=== PATIENT | male | born 1970 | race African-American/Black ===

== ENCOUNTER 2025-01-23 17:11 | Inpatient (IN) | payer MEDICAID, SELFPAY ==
[2025-01-23 17:41] VITALS: BP 136/72; PULSE 81; RESP 16; TEMP 36.7; O2SAT 99
[2025-01-23 17:46] VITALS: BMI 30.2
--- NOTE | 2025-01-23 18:32 | PC.ADMIT ---
This is the 1st admission for this 54 y.o. male to this [facility] at [facility] [place]. Arrived on unit at 1732 via ambulance from [facility] ED. Brought to [facility] ED on 01/22/25 on [address] by police after approaching people and accusing them of stalking him. Also reported to police that he kidnapped 30 6 y.o. children-per report. Pt reported to this loan underwriter during admission here that he approached police to run a check on him, knowing it would come out clean. He then told police people were following him from one place to another. Per nurse to nurse report with [facility], pt received a medication restraint upon admission to their ED 01/22/25 at 1000 due to verbal agitation with little effect. Pt denies substance use or hx tobacco use. Tox screen negative, etoh <=10. Admitting Dx: Psychosis, unspecified psychosis type. Paranoid and delusional per crisis eval at [facility]. Agitation noted upon admission to this unit. Questioned why staff was taking belongings. Declined supper offered, stating he just wanted belongings. Watched over nurses station as staff inventoried belongings. States he has lived in a assisted x1 year and his belongings are all he has. Reports no medical or psychiatric providers, no one to call as he is all alone. Reports no insurance, no hx med use. Irritated that he would not be able to meet with doctor all and that he may have to stay here for more than 1 day. States this whole situation is stupid. Able to calm during admission assessment and while watching belongings inventoried. Rates depression and anxiety #2-3 on scale 1-10(10 worse). Denies SI/HI, denies AH/VH. States he can return to assisted if ever allowed to leave. Admission orders received from prescriber, Irina Acuna.
--- OUTSIDE RECORDS SUMMARY | 2025-01-23 18:45 | XMS_ITS | Encounter Summary ---
Author Organization [facility] ystem Address [address] [place] [address] Phone Care Team Providers Care Perfect Binder Operator Name Role Phone Required, No Pcp/Pcp Not Primary Care Provider U navailable Reason for Visit * Reason Comments Psychiatric Evaluation Encounter Details Date Type Department Care Team (Late st Contact Info) Description 01/22/2025 4:32 PM EDT - 01/23/2025 3:15 PM EDT Emergency [facility] - Emergency Department [address] [place] [id number] Scooby Arauz MD [address] [place] [address] [address] Eris Rodriguez MD [address] [place] [id number] Malvin Rojas MD [address] [place] [id number] Tripp Sandhu MD [address] [place] [id number] Yomi Greene MD [address] [place] [phone] Paranoia (CMS/HCC) (Primary Dx); Psychosis, unspecified psychosis type (CMS/HCC) Discharge Disposition: Acute Hospital / Other Facility Social History Tobacco Use Types Packs/Day Years Used Date Smoking Tobacco: Never Assessed Sex and Gender Information Value Date Recorded Sex Assigned at Not on file Legal Sex Male 4:30 PM EDT Gender Identity Not on file Sexual Orientation Not on file documented as of this encounter Last Filed Vital Signs Vital Sign Reading Time Taken Comments Blood Pressure 119/74 01/23/2025 1:57 PM EDT Pulse 64 01/23/2025 1:57 PM EDT Temperature 36.7 ??C (98 ??F) 01/23/2025 1:57 PM EDT Respiratory Rate 18 01/23/2025 1:57 PM EDT Oxygen Saturation 100% 01/23/2025 1:57 PM EDT Inhaled Oxygen Concentration - - Weight 124.7 kg (275 lb) 01/23/2025 5:02 AM EDT Height 188 cm (6' 2 ) 01/23/2025 5:02 AM EDT Body Mass Index 35.31 01/23/2025 5:02 AM EDT documented in this encounter Discharge Summaries * Estrella Tejada CNP - 01/23/2025 3:15 PM EDT Psychiatric Observation Discharge Summary Patient Name: Alejandro Rosa Date of : 1970 Date of Service: 01/23/25 Length of Service: 01/22/2025 - 01/23/25 Final Diagnoses: Patient Active Problem List Diagnosis Psychosis, unspecified psychosis type (CMS/HCC) CURRENT DIAGNOSIS: Psychosis Patient Active Problem List Diagnosis Psychosis, unspecified psychosis type (CMS/HCC) REASON FOR ADMISSION TO POBS: Psychosis HOSPITAL COURSE Admitted to Psychiatric Observation Service for management of psychosis Added olanzapine Limited improvement in symptoms Psychosis continued throughout hospitalization continue to recommend inpatient psychiatric placement, Benjie has found placement at [facility] where patient will be transferred to for ongoing care. DISCHARGE MEDICATIONS Current Facility-Administered Medications: acetaminophen (TYLENOL) tablet 650 mg, 650 mg, Oral, q6h PRN, Elizabet Peterson CNP LORazepam (ATIVAN) tablet 1 mg, 1 mg, Oral, TID PRN, Elizabet Peterson, ADELA OLANZapine (ZYPREXA) tablet 5 mg, 5 mg, Oral, TID PRN, Elizabet Peterson FACILITIES MAINTENANCE WORKER No current outpatient medications on file. MENTAL STATUS UPON DISCHARGE Physical Exam: Musculoskeletal: moves all extremities; no abnormal movements Gait: gait not assessed EPS: none MSE: Appearance: disheveled, unkempt, and malodorous Behavior: uncooperative, guarded, and hostile Psychomotor Activity: normal Speech: regular rate, regular rhythm, and regular volume Mood: irritable Affect: labile Thought Process: linear Thought Content: paranoia Suicidal Ideation: unable to assess Homicidal Ideation: unable to assess Perceptions/Experiences: unable to assess Insight: poor Judgement: poor Cognitive Exam: Orientation: oriented X3 and alert Memory: unable to assess Attention/Concentration: poor Fund of Knowledge: limited Language: fluent Capacity: Cannot leave AMA Health Care Proxy: not invoked ROS Constitutional: No fever, no weight loss Musculoskeletal: NO EPS Positive: paranoia, impaired insight/judgment, mood lability, recent agitation Negative for: headache, sore throat, chest pain, dizziness, blurred vision, fatigue, joint pain, constipation, skin itchiness, dysuria, cough, SOB, vomiting, diarrhea, nausea, abdominal pain. CONDITION AT DISCHARGE Continues with paranoia, impaired insight/judgment, mood lability, recent agitation Danger to self and others DISPOSITION Requires Psychiatric Inpatient level of Care POST-DISCHARGE PLAN: Admit to [facility] Accepting Physician - Dr. Higinio Tejada CNP documented in this encounter H&P Notes * Elizabet Peterson CNP - 01/23/2025 8:21 AM EDT PSYCHIATRIC OBSERVATION ADMISSION H&P REASON FOR CONSULT A psychiatric consult was placed by Dr. Arauz for evaluation of a patient with paranoia. The patient's record was reviewed, patient was interviewed, and clinical staff were consulted to completethis comprehensive psychiatric consultation. Patient Name: Alejandro Rosa Date of : 1970 Date of Service: 01/23/2025 Time of Service: 8:21 AM Length of Service: 60 minutes Source of information: Patient, Staff collateral CHIEF COMPLAINT: When can I leave? I need to go. HISTORY OF PRESENT ILLNESS The patient is a 54 y.o. male with an unknown psychiatric history who presented on 01/22/2025 to theEmergency Department with symptoms of paranoia. Per report, patient was brought to ER on a Section 12 by Bret NOLAN for fixed delusions related to being 'stalked' , reportedly was approaching people asking why they were stalking him. Patient alsoreportedly told police he kidnapped 30 6 year old children. Per ED triage note, patient reported that he is sure someone is following him and maybe he does need a psych eval since he doesn't know how to make a million dollars. Upon assessment this morning, patient is seen laying in bed. He immediately asks, When can I leave? I need to go. Everytime I talk to someone they tell me I can go. [facility] night said I could leave today. I advised that the Benjie clinician completed the crisis assessment last night and recommends inpatient psychiatric treatment for stabilization due to reports of paranoia. Patient educated on Section 12 process but states 72 hours is too long and he has things to do. Patient refusing to engage in an assessment with this provider despite multiple attempts. Of note, patient requiredIM medication upon arrival due to acute agitation. Exam is limited as patient refused to engage in assessment. Extensive chart review completed although there appear to be no outside charts/information. There are no listed contacts available for collateral. Addendum: Patient requested to speak with me again this morning. He continues to state he wants to leave. I provided education on Section 12 and boarding in ER for psychiatric transfer. Patient tellsme he approached two people yesterday who he knows were following me. I was at [employer] then [employer]. I told them I was going to [employer]. Then I saw them walk by. There's gotta be cameras over the re to see I was talking to him. Patient continues to state multiple people are following him. Whenasked about making a statement about kidnapping children, he denies ever saying that. He states, People may think that, but they're following me. Patient reports being brought to ER for vital signs. Patient denies past psychiatric history, states he is currently homeless but has a great life. Presenting Problem: paranoia Frequency: unknown Modifiable factors: medication management, outpatient supports Severity: moderate PAST PSYCHIATRIC HISTORY Outpatient psychiatric providers: Provider: none Therapist: none Past medication trials: unknown History of inpatient psychiatric hospitalization: unknown History of suicide attempts: unknown History of Self-Injurious behavior: unknown History of violence towards others: unknown History of eating disorder: unknown History of Trauma: unknown FAMILY PSYCHIATRIC HISTORY Family history of psychiatric illness: unknown SUBSTANCE HISTORY: Only listing what is appropriate Unable to assess as patient refuses to engage in conversation MEDICAL/SURGICAL HISTORY: Name of outpatient PCP: Required, No Pcp/Pcp Not Unable to assess as patient refuses to engage in conversation SOCIAL HISTORY: Living situation: homeless Unable to assess further social history due to patient's refusal to engage with this provider Social History Socioeconomic History Marital status: Single Spouse name: Not on file Number of children: Not on file Years of education: Not on file Highest education level: Not on file Occupational History Not on file Tobacco Use Smoking status: Not on file Smokeless tobacco: Not on file Substance and Sexual Activity Alcohol use: Not on file Drug use: Not on file Sexual activity: Not on file Other Topics Concern Not on file Social History Narrative Not on file Social Drivers of Health Financial Resource Strain: Not on file Food Insecurity: Not on file Transportation Needs: Not on file Physical Activity: Not on file Stress: Not on file Social Connections: Not on file Intimate Partner Violence: Not on file Housing Stability: Not on file ALLERGIES: No Known Allergies RELEVANT LABS: Recent Results (from the past week) Acetaminophen level Collection Time: 01/22/25 6:27 PM Result Value Ref Range Acetaminophen Level <5.1 <15.0 ug/mL CBC with auto differential Collection Time: 01/22/25 6:27 PM Result Value Ref Range WBC 12.6 (H) 4.5 - 10.8 10*3 ??l RBC 4.16 (L) 4.70 - 6.10 10*6 ??l Hemoglobin 10.4 (L) 14.0 - 18.0 g/dL Hematocrit 33.2 (L) 42.0 - 52.0 % MCV 80 80 - 95 fL MCH 25.0 (L) 25.4 - 39.0 pg MCHC 31.3 31.0 - 37.0 g/dL RDW 15.5 (H) 11.5 - 14.5 % Platelets 309 150 - 450 10*3 ??l MPV 13.5 (H) 7.0 - 11.0 fL Neutrophils % 74.4 40.0 - 80.0 % Lymphocytes % 16.3 (L) 20.0 - 40.0 % Monocytes % 7.5 2.0 - 10.0 % Eosinophils % 1.0 1.0 - 6.0 % Basophils % 0.4 0.0 - 1.0 % Immature Granulocyte % 0.4 0.0 - 0.9 % Neutrophils Absolute 9.37 (H) 2.00 - 7.00 K/mm3 Absolute Immature Granulocyte 0.05 0.00 - 0.09 K/mm3 Lymphocytes Absolute 2.05 1.00 - 3.00 K/mm3 Monocytes Absolute 0.95 0.20 - 1.00 K/mm3 Eosinophils Absolute 0.12 0.00 - 0.50 K/mm3 Basophils Absolute 0.05 0.00 - 0.10 K/mm3 Microcytes Present (A) None Seen Comprehensive metabolic panel Collection Time: 01/22/25 6:27 PM Result Value Ref Range Glucose 93 70 - 100 mg/dL BUN 20 (H) 6 - 19 mg/dL Creatinine 0.9 0.4 - 1.2 mg/dL eGFR >60.00 >60.00 mL/min/1.73m*2 Sodium 138 135 - 145 mmol/L Potassium 3.5 3.4 - 5.1 mmol/L Chloride 102 98 - 109 mmol/L CO2 22 (L) 24 - 32 mmol/L Anion Gap 14 (H) 6 - 12 mmol/L Calcium 9.6 8.5 - 10.5 mg/dL Total Bilirubin 0.3 0.2 - 1.2 mg/dL Alkaline Phosphatase 108 40 - 129 U/L ALT (SGPT) 16 0 - 40 U/L AST 17 0 - 37 U/L Total Protein 9.0 (H) 6.0 - 8.5 g/dL Albumin 4.4 3.3 - 5.2 g/dL Estimated Creatinine Clearance 108.1 mL/min Ethanol Collection Time: 01/22/25 6:27 PM Result Value Ref Range Ethanol <=10 0 - 10 mg/dL Salicylate level Collection Time: 01/22/25 6:27 PM Result Value Ref Range Salicylate Level <=3.0 3.0 - 30.0 mg/dL Slide Review Collection Time: 01/22/25 6:27 PM Result Value Ref Range Ovalocytes Present None Seen Poikilocytes Present None Seen Giant Platelets Present None Seen COVID-19 ([facility]) Collection Time: 01/22/25 6:29 PM Specimen: Nasopharynx; Swab Result Value Ref Range COVID-19 ([facility]) PCR Negative Negative MOST RECENT VITAL SIGNS: Vitals: 01/23/25 0630 BP: 120/73 Pulse: 78 Resp: 18 Temp: SpO2: 97% MENTAL STATUS EXAM: Physical Exam: Musculoskeletal: moves all extremities; no abnormal movements Gait: gait not assessed EPS: none MSE: Appearance: disheveled, unkempt, and malodorous Behavior: uncooperative, guarded, and hostile Psychomotor Activity: normal Speech: regular rate, regular rhythm, and regular volume Mood: irritable Affect: labile Thought Process: linear Thought Content: paranoia Suicidal Ideation: unable to assess Homicidal Ideation: unable to assess Perceptions/Experiences: unable to assess Insight: poor Judgement: poor Cognitive Exam: Orientation: oriented X3 and alert Memory: unable to assess Attention/Concentration: poor Fund of Knowledge: limited Language: fluent Capacity: Cannot leave AMA Health Care Proxy: not invoked 1:1 SI Precautions assessment Suicidal thoughts: unable to assess -Plan: unable to assess -Intent: unable to assess Suicidal or Self-harm behaviors: none Risk factors: paranoia, impaired insight.judgment Protective factors: able to make needs known For additional documentation please refer to nursing psychosocial documentation for standardized C-SSRS re-assessment. REVIEW OF SYSTEMS Constitutional: No fever, no weight loss Musculoskeletal: NO EPS Positive: paranoia, impaired insight/judgment, mood lability, recent agitation Negative for: headache, sore throat, chest pain, dizziness, blurred vision, fatigue, joint pain, constipation, skin itchiness, dysuria, cough, SOB, vomiting, diarrhea, nausea, abdominal pain. CURRENT MEDICATIONS OUTPATIENT: No current outpatient medications ASSESSMENT: The patient presented to the Emergency Department with increased symptoms of paranoia in the context of underlying probable psychosis. The patient refuses to engage in a psychiatric assessment this morning despite multiple attempts by this provider. Patient was brought to ER on a Section 12 by police after approaching people accusing them of stalking him as well as reporting to police that he kidnapped 30 6 year old children. Due to concerns for psychosis, impaired insight/judgment, and agitation in ER, patient is currently meeting Section 12 criteria for inpatient psychiatric treatment. I reinforced this plan with patient this morning, although he appears to have limited insight into reas ons for hospitalization and asks to leave. It appears patient has no recent prescriptions/medications. As patient is unwilling to engage in full assessment, will defer medication management to inpatient psychiatric facility. Will add Zyprexa PRN for psychosis/restlessness/irritability/insomnia and Ativan PRN for anxiety while boarding in ER. Educated patient on purpose of medications, although he continued to engage in a conversation. Continue to evaluate patient's mental status and monitor sleep and appetite closely, observe any potential side effects from psychiatric medications. Will continue to provide counseling to help patient deal with stressors, and provide education and support, while continuing to work with medicine tohelp facilitate patient's clinical progress. HPI and nursing notes were reviewed. Benjie are involved in the ongoing treatment planning for thispatient. At this time the patient may not leave AMA. Plan to continue to monitor the patient while the patient remains in the hospital. Recommend at this time admission to psychiatric observation for medication adjustment and monitoring. Medical review of the labs: COVID -, Ethanol -, UDS not collected DIAGNOSTIC IMPRESSION: Unspecified psychosis F 29 Principal Problem: Psychosis, unspecified psychosis type (CMS/HCC) (POA: Yes) PLAN: Admit to Psychiatric Observation Medication plan: Add Zyprexa 5 mg TID PRN for psychosis/restlessness/irritability/insomnia Add Ativan 1 mg TID PRN for anxiety Monitor: Continue video monitoring to mitigate elopement risk and monitor ongoing patient safety while boarding in the ED. Patient may not leave AMA Discussed risks and benefits of medication plan with patient Update Dr. Rojas to inform team of disposition. Benjie involved with treatment planning--inpatient bed search Elizabet Peterson CNP 01/23/2025 8:21 AM documented in this encounter Consult Notes * Naman Bills LMHC - 01/22/2025 11:44 PM EDTAssociated Order(s): CONSULT TO ASPIRE/ ANISH ANISH Adult PIF/Assessment Boilermaker Assembly And Erection (R): KENNEDY Adams Date of Service (R): 01/22/2025 PERSONAL INFORMATION/DEMOGRAPHICS Patient Demographics Patient Name Alejandro Rosa Legal Sex Male [facility] [phone] [place] [address] (Home) No emergency contact information on file. Currently Active Insurance Patient has no currently active insurance coverage. ED Arrival Date/Time (R): 01/22/2025 4:32 PM Consult Order Date/Time (R): 01/22/2025 7:38 PM Ready Date (R): 01/22/2025 Ready Time (R):19:38 Has this person received services here before? Yes Living Situation: Lives in a long-term Homeless? (R): Yes Collateral Contact: Does the patient have a guardian? [facility]: No Guardianship Contact: Not Applicable Email Address: No e-mail address on record Ok to send a message? No Ask the person: Are you in a Dangerous Situation? No If Yes, please explain: (Follow and document per your emergency protocols) None Patient Preferred Languages Hospitality Services Manager Needed No Spoken Language Icelandic Written Language Icelandic Assessment Location of Service (R): ED Who directed client to ED? (R) Section 12 Was the patient sent with a Section 12 (R) Yes Who signed Section 12? (R) PCC/Other MD Presenting Concerns: What has caused this person to seek Services at this time? Pt is a 54 year old -Japanese male who was sectioned to the emergency department by the police for paranoia and psychosis. Pt reports to the police that he is being stalked and followed by random people wherever he goes. The police reports that pt went up to random people and asked why they're following him? Pt also reports to the police that he kidnapped 30 children around the age of 66 years old. Pt appears agitated, irritable, paranoid, somewhat agitated, and seeking to leave the emergency because he believes that he does belong here. There is no evidence that pt kidnapped any children. Pt says he voluntarily walked up to the police, handed them his [place] State ID, and asked they verify if there aren't any active warrants on him. Pt says he has been arrested for shoplifting and denies other felonies. Pt denies suicidal ideation or homicidal ideation. Precipitating Factors: Pt denies that he suffers from mental illness. Pt denies that he has ever been hospitalized psychiatrically. 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 Pt is very tangential, and paranoid. Pt is homeless. Pt does not have any family in this area. He is from the [facility]. Pt does not have any psychiatric treaters for he does not believe that he has any mental illness. 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 Medical/Physical No past medical history on file. Allergies Reported No Known Allergies Medications Prior to Admission medications Not on File Relevant History No family history on file. Addiction Is there a history of, or current substance use or other addictive behavior? No Was a toxicology screen performed? Yes Results: Negative for illicit drugs. Was Narcan administered during the last 30 days? No Explain (Please include date and time): N/A Addiction/ Substance Use History Substance Type First Use/Age of Onset Last Use Duration/Frequency Quantities Comments Alcohol Denies Cannabis Cocaine/Crack Heroin Opiates/Narcotics Benzodiazepines Stimulants Hallucinogens Prescription Other: Click or tap here to enter text. Most Recent Acute Admission(s) and Treatment History Has there been a recent acute admission or treatment history? Yes Please include dates of admission, service type, name of agency/provider, goal/outcome: Pt denies ever been in treatment for mental illness. Mental Status Exam/Risk Assessment Mental Status Exam/Risk Assessment (within normal limits unless checked, items checked are addressed in clinical formulation/narrative: Affect, Appearance, Impulsivity, Insight, Judgement, and Perception: Delusions, Hallucinations *Harm to Self and Others include: Means, accessibility (included access to firearms), lethality of means, suicidal/assault history, lethality or attempts/assaults, family history, self- injurious behavior Risk and Protective Factors: Paranoid, Psychosis Clinical Formulation/Narrative/Medical Necessity: What has caused this person to seek Services at this time? Pt is a 54 year old -Japanese male who was sectioned to the emergency department by the police for paranoia and psychosis. Pt reports to the police that he is being stalked and followed by random people wherever he goes. The police reports that pt went up to random people and asked why they're following him? Pt also reports to the police that he kidnapped 30 children around the age of 66 years old. Pt appears agitated, irritable, paranoid, somewhat agitated, and seeking to leave the emergency because he believes that he does belong here. There is no evidence that pt kidnapped any children. Pt says he voluntarily walked up to the police, handed them his [place] State ID, and asked they verify if there aren't any active warrants on him. Pt says he has been arrested for shoplifting and denies other felonies. Pt denies suicidal ideation or homicidal ideation. Precipitating Factors: Pt denies that he suffers from mental illness. Pt denies that he has ever been hospitalized psychiatrically. 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 Pt is very tangential, and paranoid. Pt is homeless. Pt does not have any family in this area. He is from the [place] area. Pt does not have any psychiatric treaters for he does not believe that he has any mental illness. 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 Medical/Physical Pt is alert and oriented in all spheres. Pt's speech is loud and pressured. Pt appears unkempt and disheveled. Pt is irritable, loud and exit seeking. Pt says I do not see any reason why I'm here! Pt does not appear to be compliant with psychotropic regimen. Pt denies having any treaters. Pt denies ever been hospitalized. Pt denies SI/HI. Pt denies auditory and visual hallucinations. Pt is verbose, loud, and has no realistic insight into his mental illness. Pt's thought content is bizarre. Ptthought process is non-linear and tangential. Pt is paranoid. Pt confronts random strangers and askwhy they are following him? 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 He is homeless. Pt says all his family members are in [place], [place], and [place]. Pt says he grew up in [place], [place]. He attended [employer] for 2 years. His mother when he was 7 years old, and he was raised mainly by hisfather. He has been incarcerated a few times for shoplifting. He denies any other charges. Pt is recommended inpatient level of care for paranoia and psychosis. Clinical Collateral was done with Maryann Wood ORGANIZATIONAL DEVELOPMENT MANAGER, and Attending MD Arauz are in agreement with this disposition. Me Strengths and Services Preferences: Person's strengths and service preferences: Able to advocate for self and state his needs. Is there a Safety Plan? (R): Yes If yes, please explain: Inpatient Psych Was a Safety Plan completed or updated during the course of this intervention? (R) Yes If no, please explain: N/A Diagnosis Type Mental Health Only (R): Yes Substance Use Disorder Only (R): No Dual Diagnosis (R): No Comments: N/A Is this person diagnosed with Autism Spectrum Disorder? (R): No Was a Doc to Doc performed? (R): No Was this an Opiod overdose? (R): Yes and No Is this a SUDE (Substance Use Disorder Evaluation)? No Was there an ANISH Peer or FP participating in the intervention? (R): No Who initiated FP intervention? (R): N/A Identified Needs and Goals for Treatment Treat Psychosis/Eliminate Paranoia 2. Improve reality testing 3. Stabilize Mood 4. Administer psychotropic medications Additional Recommendations Additional Recommendations: Outpatient Mental Health Provider and Partial Hospitalization If other, please explain: Disposition Details Information gathered from:Person Served and Hospital Staff If other, please explain: Medical Clearance Requested (R): Yes Medical Clearance Requested by (R): ED If other, please explain: Medical Clearance Provided (R): Yes Medical Clearance Provided Where? 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 Consult Note documented in this encounter ED Notes * Scooby Arauz MD - 01/22/2025 11:04 PM EDTAssociated Order(s): Critical Care Procedure Critical Care Performed by: Scooby Arauz MD Authorized by: Scooby Arauz MD Critical Care Note: I personally spent 35 minutes of critical care time in the Emergency Department on this patient, who had a high probability of sudden, clinically significant deterioration, which required the highestlevel of physician preparedness to intervene urgently. The presentation was psychosis and paranoia requiring aSpire consultation determined to be inpatient level of care, ultimately requiring IM sedation . I managed/supervised life or organ supporting interventions that required frequent physician assessment. I devoted my full attention in the ED to the direct care of this patient for the period of time above. Time I spent with family or surrogate(s) is included only if the patient was incapable of pr oviding the necessary information or participating in medical decision making. Time devoted to any procedures I billed separately is not included. Tasks included the following: initial evaluation, reassessments, discussion with aSpire, Ordering and review of labs, ordering and following up effects of IM sedation, reassessments, charting Scooby Arauz MD 01/22/25 2088 * Scooby Arauz MD - 01/22/2025 5:35 PM EDT CHIEF COMPLAINT: Chief Complaint Patient presents with Psychiatric Evaluation HISTORY OF PRESENT ILLNESS: Medical records and electronic records reviewed. Patient interviewed and patient examined. Patient is a 54-year-old male with no significant past medical history on no medication presenting here on section 12 after he was stopped by police for approaching multiple people and accusing them of stalking him. States reportedly to police that he kidnapped a 30 6-year-old children. States to me that his only complaint is not being a billionaire, which she wants to be. States no physical complaints, does not feel paranoid, denies hallucinations or delusions or suicidal ideation. Denies drugs or alcohol or cigarettes. PAST MEDICAL, FAMILY AND SOCIAL HISTORY: No past medical history on file.No past surgical history on file. Social History Tobacco Use Smoking status: Not on file Smokeless tobacco: Not on file Substance Use Topics Alcohol use: Not on file Social History Substance and Sexual Activity Drug Use Not on file No family history on file. MEDICATIONS: Medications LORazepam (ATIVAN) tablet 2 mg (2 mg Oral Not Given 01/22/252120) LORazepam (ATIVAN) injection 2 mg (2 mg Intramuscular Given 01/22/252153) haloperidol lactate (HALDOL) injection 5 mg (5 mg Intramuscular Given 01/22/252153) REVIEW OF SYSTEMS: Reviewed and negative except as per HPI PHYSICAL EXAM: Vital Signs Vitals: 01/22/25 2254 BP: 112/69 Pulse: 76 Resp: 16 Temp: 97.7 ??F (36.5 ??C) SpO2: 98% General: Patient is alert, cooperative Head: Normocephalic, atraumatic Eyes: Conjunctiva clear, no scleral icterus Respiratory: no significant dyspnea or accessory respiratory muscle use Cardiovascular: Normal heart rate, regular rhythm. Gastrointestinal: soft, no significant distention Musculoskeletal: No extremity cyanosis or significant edema Skin: No rash, no jaundice Neurologic: Nonfocal. Psychiatric: see [facility] ED COURSE & MEDICAL DECISION MAKING LABORATORY STUDIES: Labs Reviewed CBC WITH AUTO DIFFERENTIAL - Abnormal Result Value WBC 12.6 (*) RBC 4.16 (*) Hemoglobin 10.4 (*) Hematocrit 33.2 (*) MCV 80 MCH 25.0 (*) MCHC 31.3 RDW 15.5 (*) Platelets 309 MPV 13.5 (*) Neutrophils % 74.4 Lymphocytes % 16.3 (*) Monocytes % 7.5 Eosinophils % 1.0 Basophils % 0.4 Immature Granulocyte % 0.4 Neutrophils Absolute 9.37 (*) Absolute Immature Granulocyte 0.05 Lymphocytes Absolute 2.05 Monocytes Absolute 0.95 Eosinophils Absolute 0.12 Basophils Absolute 0.05 Microcytes Present (*) COMPREHENSIVE METABOLIC PANEL - Abnormal Glucose 93 BUN 20 (*) Creatinine 0.9 eGFR >60.00 Sodium 138 Potassium 3.5 Chloride 102 CO2 22 (*) Anion Gap 14 (*) Calcium 9.6 Total Bilirubin 0.3 Alkaline Phosphatase 108 ALT (SGPT) 16 AST 17 Total Protein 9.0 (*) Albumin 4.4 Estimated Creatinine Clearance 108.1 ACETAMINOPHEN LEVEL - Normal Acetaminophen Level <5.1 ETHANOL - Normal Ethanol <=10 SALICYLATE LEVEL - Normal Salicylate Level <=3.0 COVID-19 ([facility]) URINE DRUGS OF ABUSE SCREEN SLIDE REVIEW Ovalocytes Present Poikilocytes Present Giant Platelets Present IMAGING STUDIES: No results found. PROCEDURES: Procedures Medical Decision Making Patient is a 54-year-old male with no significant past medical history on no medication presenting here on section 12 after he was stopped by police for approaching multiple people and accusing them of stalking him. States reportedly to police that he kidnapped a 30 6-year-old children. States to me that his only complaint is not being a billionaire, which she wants to be. States no physical complaints, does not feel paranoid, denies hallucinations or delusions or suicidal ideation. Denies drugs or alcohol or cigarettes. I spoke also with patient's nurse. Here, vitals reassuring. Patient well-appearing, calm, comfortable, no acute distress. Breathing comfortably. No external evidence of trauma to head or neck. Not clinically intoxicated. Differential including likely psychiatric etiology, with low suspicion for organic etiology of patient's complaints. Therefore, basic labs ordered, with plan for aSpire consultation once resulted I reviewed labs, white count 12.6, hemoglobin 10.4, reassuring CMP. Therefore, aSpire consulted, who recommended inpatient level of care. Patient very agitated by this, so required physical hold and 5 of Haldol and 2 of Ativan IM. ED and nursing records reviewed. Discussion of management with physician, qualified health professional, and/or appropriate source: aspire Escalation of care to admission or observation considered Consideration of treatments or testing, not performed: CT head Chronic Conditions affecting care include none Social Determinants of Health significantly affecting the care and disposition of this patient include none Final diagnoses: [F22] Paranoia (CMS/HCC) [F29] Psychosis, unspecified psychosis type (CMS/HCC) Scooby Arauz MD 01/22/25 9716 * Amberly Aguilar RN - 01/22/2025 4:55 PM EDT Alejandro Rosa is a 54 y.o. male presenting with Psychiatric Evaluation Pt arrives via EMS after being sectioned by police on scene. Per EMS report patient believes he is being stalked by multiple people and was walking up to them on the street accusing them of such. He also stated to police that he had kidnapped thirty 6 year old children. Pt arrives calm and cooperative, stating he is sure someone is following him and maybe he does need a psych eval since he doesn't know how to make a million dollars . Denies SI/HI, also denies kidnapping. documented in this encounter Miscellaneous Notes * Behavioral Health - Ava Haskins MSW - 01/23/2025 12:44 PM EDT [facility] Needs EKG and tox * Behavioral Health - Ava Haskins MSW - 01/23/2025 10:01 AM EDT The Client has been faxed out to the following for bed placement: Leticia bhakta * Behavioral Health - Jacki Talamantes MSW - 01/23/2025 4:02 AM EDT The patient has been faxed to: [facility] documented in this encounter Plan of Treatment Pending Results Name Type Priority Associated Diagnoses Date /Time ECG ECG Routine 01/23/2025 12: 50 PM EDT Scheduled Orders Name Type Priority Associated Diagnoses Orde r Schedule Urine drugs of abuse screen Lab STAT Once for 1 Occur rences starting 01/22/2025 until 01/22/2025 documented as of this encounter Procedures Procedure Name Priority Date/Time Associated Diagnosis Comments ECG 12-LEAD Routine 01/23/2025 12:50 PM EDT ED CRITICAL CARE Routine 01/22/2025 11:0 4 PM EDT COVID-19 ([facility]) STAT 01/22/2025 6:29 PM EDT SLIDE REVIEW Routine 01/22/2025 6:27 PM EDT CBC WITH AUTO DIFFERENTIAL STAT 01/22/2025 6:27 PM EDT ETHANOL STAT 01/22/2025 6:27 PM EDT ACETAMINOPHEN LEVEL STAT 01/22/2025 6 :27 PM EDT SALICYLATE LEVEL STAT 01/22/2025 6:27 PM EDT COMPREHENSIVE METABOLIC PANEL STAT 01/22/2025 6:27 PM EDT documented in this encounter Results * Critical Care (01/22/2025 11:04 PM EDT) Narrative Scooby Arauz MD - 01/22/2025 11:04 PM EDT Scooby Arauz MD ? 01/22/2025 11:05 PM Critical Care Performed by: Scooby Arauz MD Authorized by: Scooby Arauz MD ?? us Scooby Arauz MD IN CLINIC/BEDSIDE ORDERABL ES Final Result * COVID-19 ([facility]) (01/22/2025 6:29 PM EDT) [facility]) PCR Negative Negative LTT PANTHER ANALYZER-DP H 01/22/2025 11:17 PM EDT [facility] Swab (Nasopharynx) Non-blood Collection / Unknown 01/22/2025 6:29 PM EDT 01/22/2025 7:00 PM EDT us Scooby Arauz MD LAB MICROBIOLOGY - GENERAL ORDERABLES Final Result [facility] [address] [place] [address], [place] [phone] * Slide Review (01/22/2025 6:27 PM EDT) Ovalocytes Present None Seen 01/22/2025 8:41 PM EDT [facility] Poikilocytes Present None Seen 01/22/2025 8:41 PM EDT [facility] Giant Platelets Present None Seen 8:41 PM EDT [facility] Blood Venous blood / Unknown Venipuncture / Unknown 01/22/2025 6:27 PM EDT 01/22/2025 6:59 PM EDT us Scooby Arauz MD LAB BLOOD ORDERABLES Final Result Performing Organization Address City/[facility]/ZIP Co de Phone Number [facility] [address] [place] [address], [place] [phone] * Salicylate level (01/22/2025 6:27 PM EDT) Salicylate Level <=3.0 3.0 - 30.0 mg/dL 01/22/2025 7:31 PM EDT [facility] Blood Venous blood / Unknown Venipuncture / Unknown 01/22/2025 6:27 PM EDT 01/22/2025 6:58 PM EDT us Scooby Arauz MD LAB BLOOD ORDERABLES Final Result Performing Organization Address [facility]/ZIP Co de Phone Number [facility] [address] [place] [facility] [place] [address], [place] [phone] * Ethanol (01/22/2025 6:27 PM EDT) Ethanol <=10 0 - 10 mg/dL 01/22/2025 7:31 PM EDT [facility] Comment:NONE DETECTED: Resul t <10 should be interpreted as NONE DETECTED. Blood Venous blood / Unknown Venipuncture / Unknown 01/22/2025 6:27 PM EDT 01/22/2025 6:58 PM EDT us Scooby Arauz MD LAB BLOOD ORDERABLES Final Result [facility] [address] [place] [address], [place] [phone] * (ABNORMAL) Comprehensive metabolic panel (01/22/2025 6:27 PM EDT) Glucose 93 70 - 100 mg/dL 01/22/2025 7:29 PM [facility] BUN 20(H) 6 - 19 mg/dL 01/22/2025 7:29 PM [facility] Creatinine 0.9 0.4 - 1.2 mg/dL 01/22/2025 7:29 PM [facility] eGFR >60.00 >60.00 mL/min/1.7 3m*2 01/22/2025 7:29 PM [facility] Sodium 138 135 - 145 mmol/L 01/22/2025 7:29 PM [facility] Potassium 3.5 3.4 - 5.1 mmol/L 01/22/2025 7:29 PM [facility] Chloride 102 98 - 109 mmol/L 01/22/2025 7:29 PM [facility] CO2 22(L) 24 - 32 mmol/L 01/22/2025 7:29 PM [facility] Anion Gap 14(H) 6 - 12 mmol/L 01/22/2025 7:29 PM [facility] Calcium 9.6 8.5 - 10.5 mg/dL 01/22/2025 7:29 PM [facility] Total Bilirubin 0.3 0.2 - 1.2 mg/dL 01/22/2025 7:29 PM [facility] Alkaline Phosphatase 108 40 - 129 U/L 01/22/2025 7:29 PM [facility] ALT (SGPT) 16 0 - 40 U/L 01/22/2025 7:29 PM [facility] AST 17 0 - 37 U/L 01/22/2025 7:29 PM [facility] Total Protein 9.0(H) 6.0 - 8.5 g/dL 01/22/2025 7:29 PM [facility] Albumin 4.4 3.3 - 5.2 g/dL 01/22/2025 7:29 PM [facility] Estimated Creatinine Clearance 108.1 mL/min 01/22/2025 7:29 PM [facility] Blood Venous blood / Unknown Venipuncture / Unknown 01/22/2025 6:27 PM EDT 01/22/2025 6:58 PM EDT us Scooby Arauz MD LAB BLOOD ORDERABLES Final Result [facility] [address] [facility] [facility] [place] [address], [place] [phone] * (ABNORMAL) CBC with auto differential (01/22/2025 6:27 PM EDT) WBC 12.6(H) 4.5 - 10.8 10*3 ??l 01/22/2025 8:04 PM EDT [facility] RBC 4.16(L) 4.70 - 6.10 10*6 ??l 01/22/2025 8:04 PM EDT [facility] Hemoglobin 10.4(L) 14.0 - 18.0 g/dL 01/22/2025 8:04 PM EDT [facility] Hematocrit 33.2(L) 42.0 - 52.0 % 01/22/2025 8:04 PM EDT [facility] MCV 80 80 - 95 fL 01/22/2025 8:04 PM EDT [facility] MCH 25.0(L) 25.4 - 39.0 pg 01/22/2025 8:04 PM EDT [facility] MCHC 31.3 31.0 - 37.0 g/dL 01/22/2025 8:04 PM EDT [facility] RDW 15.5(H) 11.5 - 14.5 % 01/22/2025 8:04 PM EDT [facility] Platelets 309 150 - 450 10*3 ??l 01/22/2025 8:04 PM EDT [facility] MPV 13.5(H) 7.0 - 11.0 fL 01/22/2025 8:04 PM EDT [facility] Neutrophils % 74.4 40.0 - 80.0 % 01/22/2025 8:04 PM EDT [facility] Lymphocytes % 16.3(L) 20.0 - 40.0 % 01/22/2025 8:04 PM EDT [facility] Monocytes % 7.5 2.0 - 10.0 % 01/22/2025 8:04 PM EDT [facility] Eosinophils % 1.0 1.0 - 6.0 % 01/22/2025 8:04 PM EDT [facility] Basophils % 0.4 0.0 - 1.0 % 01/22/2025 8:04 PM EDT [facility] Immature Granulocyte % 0.4 0.0 - 0.9 % 01/22/2025 8:04 PM EDT [facility] Neutrophils Absolute 9.37(H) 2.00 - 7.00 K/mm3 01/22/2025 8:04 PM EDT [facility] Absolute Immature Granulocyte 0.05 0.00 - 0.09 K/mm3 01/22/2025 8:04 PM EDT [facility] Lymphocytes Absolute 2.05 1.00 - 3.00 K/mm3 01/22/2025 8:04 PM EDT [facility] Monocytes Absolute 0.95 0.20 - 1.00 K/mm3 01/22/2025 8:04 PM EDT [facility] Eosinophils Absolute 0.12 0.00 - 0.50 K/mm3 01/22/2025 8:04 PM EDT [facility] Basophils Absolute 0.05 0.00 - 0.10 K/mm3 01/22/2025 8:04 PM EDT [facility] Microcytes Present(A ) None Seen 01/22/2025 8:04 PM EDT [facility] Blood Venous blood / Unknown Venipuncture / Unknown 01/22/2025 6:27 PM EDT 01/22/2025 6:59 PM EDT Scooby Arauz MD LAB BLOOD ORDERABLES Final Result [facility] [address] [place] [address], * Acetaminophen level (01/22/2025 6:27 PM EDT) Acetaminophen Level <5.1 <15.0 ug/mL 01/22/2025 7:31 PM EDT [facility] Blood Venous blood / Unknown Venipuncture / Unknown 01/22/2025 6:27 PM EDT 01/22/2025 6:58 PM EDT us Scooby Arauz MD LAB BLOOD ORDERABLES Final Result [facility] [address] [place] [address], [place] [phone] documented in this encounter Visit Diagnoses Diagnosis Psychosis, unspecified psychosis type (CMS/HCC)- Primary Paranoia (CMS/HCC) Delusional disorder Psychosis, unspecified psychosis type (CMS/HCC) documented in this encounter Admitting Diagnoses Diagnosis Psychosis, unspecified psychosis type (CMS/HCC) documented in this encounter Administered Medications Inactive Administered Medications - up to 3 most recent administrations Medication Order MAR Action Action Date Dose Rate Site haloperidol lactate (HALDOL) 5 MG/ML injection - ADS Override Pull Starting on Tue01/22/25 at 2146, For 1 dose, Created by cabinet override ECG recommended at baseline and then monitor QTc interval by [employer] or ECG daily if receiving haloperidol. Haloperidol is contraindicated if QTc is over 500 msec. *HALOPERIDOL INJ MAY BE GIVEN IV* haloperidol lactate (HALDOL) injection 5 mg 5 mg, Intramuscular, Once, On Tue01/22/25 at 2154, For 1 dose, ECG recommended at baseline and then monitor QTc interval by [employer] or ECG daily if receiving haloperidol. Haloperidol is contraindicated if QTc is over 500 msec. *HALOPERIDOL INJ MAY BE GIVEN IV* Given 01/22/2025 9:54 PM EDT 5 mg Right Anterior Thigh LORazepam (ATIVAN) 2 MG/ML injection - ADS Override Pull Starting on Tue01/22/25 at 2145, For 1 dose, Created by cabinet override LORazepam (ATIVAN) injection 2 mg 2 mg, Intramuscular, Once, On Tue01/22/25 at 2154, For 1 dose Given 01/22/2025 9:54 PM EDT 2 mg Left Anterior Thigh documented in this encounter Active and Recently Administered Medications Times are shown in EDT. Scheduled Medication Order 01/21/2025 01/22/2025 01/23/2025 haloperidol lactate (HALDOL) injection 5 mg (COMPLETED) 5 mg, Intramuscular, Once, On Tue01/22/25 at 2154, For 1 dose, ECG recommended at baseline and then monitor QTc interval by [employer] or ECG daily if receiving haloperidol. Haloperidol is contraindicated if QTc is over 500 msec. *HALOPERIDOL INJ MAY BE GIVEN IV* 2153 (Given - Provider: Amberly Aguilar RN) LORazepam (ATIVAN) injection 2 mg (COMPLETED) 2 mg, Intramuscular, Once, On Tu01/22/25 at 2154, For 1 dose 2153 (Given - Provider: Amberly Aguilar RN) PRN Medication Order 01/21/2025 01/22/2025 01/23/2025 acetaminophen (TYLENOL) tablet 650 mg 650 mg, Oral, Every 6 hours PRN, pain 1-3 or if patient refuses opiate (if ordered), pain 4-6 or if patient refuses opiate (if ordered), pain 7-10, Starting on Tue01/23/25 at 0820 LORazepam (ATIVAN) tablet 1 mg 1 mg, Oral, 3 times daily PRN, anxiety, Starting on Tue01/23/25 at 0820 OLANZapine (ZYPREXA) tablet 5 mg 5 mg, Oral, 3 times daily PRN, restlessness / irritability, Psychosis (hallucinations, delusions, or disorganized thinking/speech), insomnia, Starting on Tue01/23/25 at 0820 documented in this encounter Additional Health Concerns Infection Onset Date Last Indicated Resolved Time Covid Possible 01/22/2025 01/22/2025 01/22/2025 11 :17 PM EDT documented as of this encounter Care Teams Perfect Binder Operator Relationship Specialty Start Date End Date Required, No Pcp/Pcp Not [address] [place] [address] PCP - General Invasive Cardiologist 01/22/25 documented as of this encounter
--- OUTSIDE RECORDS SUMMARY | 2025-01-23 18:45 | XMS_ITS | Encounter Summary ---
[facility] Address [address] [place] [address] Phone Care Team Providers Care [employer] Name Role Phone Required, No Pcp/Pcp Not Primary Care Provider U navailable Encounter Details Date Type Department Care Team (Latest Contact Info) Description 01/22/2025 Travel Social History Tobacco Use Types Packs/Day Years Used Date Smoking Tobacco: Never Assessed Sex and Gender Information Value Date Recorded Sex Assigned at Not on file Legal Sex Male 4:30 PM EDT Gender Identity Not on file Sexual Orientation Not on file documented as of this encounter Plan of Treatment Not on file documented as of this encounter Visit Diagnoses Not on filedocumented in this encounter Additional Health Concerns Infection Onset Date Last Indicated Resolved Time Covid Possible 01/22/2025 01/22/2025 01/22/2025 11 :17 PM EDT documented as of this encounter Care Teams [employer] Relationship Specialty Start Date End Date Required, No Pcp/Pcp Not [address] [place] [address] PCP - General Territory Sales Professional 01/22/25 documented as of this encounter
[2025-01-24 07:00] VITALS: BMI 30.6
[2025-01-24 07:54] LABS: Estimated Average Glucose 140 mg/dL; Hemoglobin A1C 109.9488 umol/L; Hemoglobin A1c % 6.5 % (<6.0); Total Hemoglobin (HGBA1C) 2298.4589 umol/L
[2025-01-24 08:10] LABS: Alanine Aminotransferase 14 U/L (0-40); Albumin Level 3.7 g/dL (3.5-5.0); Alkaline Phosphatase 85 U/L (39-117); Anion Gap 10 (12-20); Aspartate Amino Transferase 17 U/L (5-37); Bilirubin Total 0.4 mg/dL (0.0-1.0); Blood Urea Nitrogen 13 mg/dL (9-16); Calcium 8.7 mg/dL (8.4-10.2); Carbon Dioxide 24 mmol/L (22-29); Chloride 108 mmol/L (96-108); Cholesterol 211 mg/dL (<200); Estimated Glomerular Filt Rate > 60; Glucose Random 100 mg/dL (60-115); HDL Cholesterol 36 mg/dL (>40); LDL Cholesterol Calculated 153 mg/dL (<100); Sodium 138 mmol/L (135-145); Triglycerides 111 mg/dL (<150)
[2025-01-24 08:24] LABS: Thyroid Stimulating Hormone 4.39 uIU/mL (0.32-4.0)
[2025-01-24 08:37] LABS: Vitamin B12 293 pg/mL (200-900)
[2025-01-24 08:39] VITALS: BP 133/76; PULSE 71; TEMP 36.6; O2SAT 99
--- NOTE | 2025-01-24 10:03 | HO.PSYCHPN ---
Subjective Subjective Date of Service: 01/24/25 Reason For Visit: Psychosis Diagnostics Vital Signs (24Hr): Vital Signs - 24 hr 01/23/25 17:41 01/24/25 08:39 Temperature 98.1 F 97.8 F Pulse Rate 81 71 Respiratory Rate 16 Blood Pressure 136/72 133/76 Pulse Oximetry 99 99 Oxygen Delivery Method Room Air Room Air BMI result Body Mass Index 30.2 Labs 01/24/25 07:38 Labs: Laboratory Results - last 48 hr 01/24/25 07:38 Sodium 138 Potassium 4.0 Chloride 108 Carbon Dioxide 24 Anion Gap 10 L BUN 13 Creatinine 0.80 Estim Creat Clear Calc 141.0 Estimated GFR > 60 Random Glucose 100 Estimat Average Glucose 140 Hemoglobin A1c % 6.5 H Calcium 8.7 Total Bilirubin 0.4 AST 17 ALT 14 Alkaline Phosphatase 85 Total Protein 8.0 Albumin 3.7 Triglycerides 111 Cholesterol 211 H LDL Cholesterol, Calc 153 H HDL Cholesterol 36 L Vitamin B12 293 Folate 8.0 TSH 4.39 H Medications Medications Current Medications Acetaminophen (Acetaminophen 325 Mg Tablet) 650 mg PO Q6H PRN PRN Reason: Headache/Pain, Scale 1-10 Al Hydroxide/Mg Hydroxide (Magnesium Hydrox/Alum Hydrox 30 Ml Oral.Susp) 30 ml PO Q6H PRN PRN Reason: Heartburn/Nausea Hydroxyzine HCl (Hydroxyzine Hcl 25 Mg Tablet) 25 mg PO Q6H PRN PRN Reason: mild anxiety Magnesium Hydroxide (Milk Of Magnesia 30 Ml Oral.Susp) 30 ml PO DAILY PRN PRN Reason: Constipation Olanzapine (Olanzapine 5 Mg Tablet) 5 mg PO Q4H PRN PRN Reason: agitation Trazodone HCl (Trazodone Hcl 50 Mg Tablet) 50 mg PO BEDTIME MRX1 PRN PRN Reason: Insomnia Allergies Allergies Allergy/AdvReac Type Severity Reaction Status Date / Time No Known Allergies Allergy Verified 01/23/25 17:45 Assessment & Plan Time Spent With Patient Time: Total time managing care of this patient today ____ minutes.
--- NOTE | 2025-01-24 10:04 | HO.PSYADMNOT ---
HPI Date of Service: 01/24/25 Chief Complaint: Psychosis Sources of Information: patient interviewed, chart reviewed and crisis/core team assessment reviewed HPI Subjective Notes: Webster Warning, Conditional Voluntary and Section 12B Narrative: Patient is a 54-year-old man with reportedly no past psychiatric admissions, with delusional disorder, who presents for expressing delusional thoughts in the community. Patient is polite, organized in speech and behavior and in good behavioral and impulse control. He says he feels it is a big mistake that he was psychiatrically admitted and very much wants to explain his story. Patient shares that this past week he was at the [employer] and noticed a person following him; patient says this happens to him all the time and he is used to it however to be on the safe side, made sure that he showed that he was friendly to this person in front of an outdoor bank camera so that it would be documented. Patient told this person that he is going over to [facility]. As expected, this person walked by [facility] and patient waved to him. Patient was eating his pizza and said he saw a police car drive up. Patient thought it would be a good idea to go up to the officer, give him his id and let him know that he had no warrants...(which police report corroborates). In hindsight he wished he had just kept to himself. The officer started asking him questions and eventually police station psychiatrist? (possible Crisis SW) showed up; patient was sent to the local ED and made inpatient level of care. Crayon Painter shared EDs report and patient acknowledged that he reported to the police he was being stalked by people wherever he goes, however he says he only went up to 1 person (denies that he went up to anyone else at all and has not done so for several months); regarding patient telling police that he kidnapped 30 children... Patient explained what he said was that the people following him must be assuming that he is kidnapping invisible individual...(patient expressed a chronic concern that people may think he is kidnapping others) but patient said he never said children, he just said individuals and that he used the word invisible to be facetious because he is obviously not kidnapping people...patient says he has never kidnapped anyone, never wants to and never would. Patient says he was a little upset that he was being taken to the hospital and being placed inpatient but he was never agitated and never did anything aggressive at all. Regarding patient's chronic belief that people are following him, patient said it has been happening for a long time and he accepts it; he assumes they are part of a neighborhood watch group; he never feels threatened by them and does not think they mean any harm; rather patient has grown use to it, though periodically he will approach such a person and ask why they are following (to which they always respond they have no idea what he is talking about). Patient denies any drug or alcohol use; He denies any SI or HI ever; denies any AVH ever. Denies any depression or anxiety. Patient says he has never been psychiatrically admitted and has never taken psychotropic medications. He says he has been living in a [place] [facility] called [facility] in [facility] for the past year where staff is helping him get into permanent housing. Patient says he supports himself through gambling winnings. Past Psychiatric History: no hx of psych hospitalizations no hx of psych meds no hx SI/HI no AVH Medical Evaluation Reviewed: Hospitalist Rolando Pending [facility] Medical History (Updated 01/24/25 @ 17:50 by Ronaldo Sylvester MD) Schizophrenia Family History: Not known Social History: mom at 7 yo tough childhood Finished HS 4 years of college, but no degree moved to [facility] Substance History: Denies any Trauma History: Alluded to but did not disclose Diagnostics Vital Signs (24Hr): Vital Signs - 24 hr 01/23/25 17:41 01/24/25 08:39 Temperature 98.1 F 97.8 F Pulse Rate 81 71 Respiratory Rate 16 Blood Pressure 136/72 133/76 Pulse Oximetry 99 99 Oxygen Delivery Method Room Air Room Air BMI result Body Mass Index 30.2 Labs 01/24/25 07:38 Labs: Laboratory Results - last 48 hr 01/24/25 07:38 Sodium 138 Potassium 4.0 Chloride 108 Carbon Dioxide 24 Anion Gap 10 L BUN 13 Creatinine 0.80 Estim Creat Clear Calc 141.0 Estimated GFR > 60 Random Glucose 100 Estimat Average Glucose 140 Hemoglobin A1c % 6.5 H Calcium 8.7 Total Bilirubin 0.4 AST 17 ALT 14 Alkaline Phosphatase 85 Total Protein 8.0 Albumin 3.7 Triglycerides 111 Cholesterol 211 H LDL Cholesterol, Calc 153 H HDL Cholesterol 36 L Vitamin B12 293 Folate 8.0 TSH 4.39 H Meds/Allergies Meds Home Medications ?Medication ?Instructions ?Recorded ?Confirmed ?Type No Known Home Meds 01/23/25 01/23/25 History Allergies Allergies Allergy/AdvReac Type Severity Reaction Status Date / Time No Known Allergies Allergy Verified 01/23/25 17:45 Mental Status Exam Mental Status Exam Narrative: Pt is alert and oriented; behavior is cooperative, friendly, polite and calm; patient is not in distress; dressed in casual attire with unkempt hair, marginal hygiene; mood is described as good and affect congruent; eye contact appropriate; Speech is normal rate, volume and prosody and not pressured; no psychomotor agitation/retardation present; thought process is circumstantial but overall organized and goal directed; Thought content is on being wrongly admitted; chronic delusional thinking that people are following him and assume that he kidnapped individuals; denies any SI/HI. Denies AVH and currently there is no evidence of perceptual disturbance. Patients insight and judgment impaired but possibly at baseline and possibly adequate Assessment & Plan Assessment & Plan (1) Schizophrenia: Status: Acute Code(s): F20.9 - Schizophrenia, unspecified Plan Patient is a 54-year-old man with reportedly no past psychiatric admissions, with delusional disorder, who presents for expressing delusional thoughts in the community. Patient is polite, organized in speech and behavior and in good behavioral and impulse control. He says he feels it is a big mistake that he was psychiatrically admitted and very much wants to explain his story. Patient shares that this past week he was at the [employer] and noticed a person following him; patient says this happens to him all the time and he is used to it however to be on the safe side, made sure that he showed that he was friendly to this person in front of an outdoor bank camera so that it would be documented. Patient told this person that he is going over to [facility]. As expected, this person walked by [facility] and patient waved to him. Patient was eating his pizza and said he saw a police car drive up. Patient thought it would be a good idea to go up to the officer, give him his id and let him know that he had no warrants...(which police report corroborates). In hindsight he wished he had just kept to himself. The officer started asking him questions and eventually police station psychiatrist? (possible Crisis SW) showed up; patient was sent to the local ED and made inpatient level of care. Crayon Painter shared EDs report and patient acknowledged that he reported to the police he was being stalked by people wherever he goes, however he says he only went up to 1 person (denies that he went up to anyone else at all and has not done so for several months); regarding patient telling police that he kidnapped 30 children... Patient explained what he said was that the people following him must be assuming that he is kidnapping invisible individual...(patient expressed a chronic concern that people may think he is kidnapping others) but patient said he never said children, he just said individuals and that he used the word invisible to be facetious because he is obviously not kidnapping people...patient says he has never kidnapped anyone, never wants to and never would. Patient says he was a little upset that he was being taken to the hospital and being placed inpatient but he was never agitated and never did anything aggressive at all. Regarding patient's chronic belief that people are following him, patient said it has been happening for a long time and he accepts it; he assumes they are part of a neighborhood watch group; he never feels threatened by them and does not think they mean any harm; rather patient has grown use to it, though periodically he will approach such a person and ask why they are following (to which they always respond they have no idea what he is talking about). Patient denies any drug or alcohol use; He denies any SI or HI ever; denies any AVH ever. Denies any depression or anxiety. Patient says he has never been psychiatrically admitted and has never taken psychotropic medications. He says he has been living in a [place] called [facility] in [facility] for the past year where staff is helping him get into permanent housing. Patient says he supports himself through gambling winnings. Formulation/clinical reasoning: Patient presents his story well. He is in good behavioral and impulse control and organized in speech and behavior and explains himself logically inappropriately. There is nothing in the police report/ED report to imply any dangerousness and patient denies any SI or HI or any history of such. Patient does not have any insight that he has delusional thinking and does not want any medications; rather he wants to [place] he [place] been living for [place] and continue living his life. Patient does not want or feel the need for medication -will monitor patient and work on getting collateral from caseworker protective services at [facility]. Plan: Twelve B Q 15 minute Will work on getting collateral: [facility] on [address] [facility] (patient encourages engineering technical writer to call James his casemanager) Patient educated on: diagnosis Informed Consent: does not understand Reason for continued inpatient stay Substantial Risk for: stable for discharge and rapid decompensation Statement Statement: I have reviewed the history and physical and performed a pertinent examination on my patient. No changes have occurred unless specified. If the History and Physical was not performed prior to admission, the Hospitalist's service will be consulted for completing the admission physical. Time Spent With Patient Time: Total time managing care of this patient today ____ minutes.
--- NOTE | 2025-01-24 14:32 | P.CONHOSP_ITS ---
History of Present Illness Data of Consult Service Date: 01/24/25 Primary Care Provider: Unknown Physician HPI Reason for consult: Admission H&P Pt is a 54-year-old male without known significant PMH not on home medications who is admitted to [facility] psychiat[facility] unit for increasingly bizarre and paranoid behavior. Pt apparently was brought in on a section 12 after being stopped by the police after approaching multiple people and accusing them of stalking him. Pt also then reportedly told the police that he had kidnapped 30 6-year-old children. Medical consult for admission H&P. Pt is irritable and slightly evasive during interview and exam. Reports he has not been to a PCP yearly appointments since at least 2013. Denies any significant PMH. Has no acute medical complaints at this time. Denies fever, chills, nausea, vomiting, abdominal pain. No SOB or difficulty breathing. Denies cough. No chest pain/pressure, palpitations. Denies headache or acute vision changes. Vitals stable and WNL. Labs reviewed, significant for mildly elevated cholesterol, and TSH 4.39, otherwise grossly unremarkable. Review of Systems 2 Review of Systems: Pt has no acute or chronic medical complaints. [facility] Medical History Schizophrenia Social History Household Members: None Housing: Homeless Housing Other:: [facility]pc Do you presently have visiting nurse or other home services: No Patient Tobacco Use Status: Never used Tobacco Smoked in Last 30 Days: No e-Cigarette/Vaping Use: Never Used Patient Interested in Nicotine Replacement: No (n/a) Patient Given Instructions on How to Stop Smoking: No (n/a) Second Hand Smoke Exposure: No Use of substances other than those prescribed or required for medical reasons: No Currently Displaying Signs/Symptoms of Drug Intoxication Withdrawal: No Any prior treatment program specific to substance use: No Have you been hit, kicked, punched, or otherwise hurt by someone within the past year? If so, by whom?: No Do you feel safe in your current relationship?: No Current Relationship Is there a partner from a previous relationship who is making you feel unsafe now?: No Are you made to feel afraid or neglected: No Advance Directives: No Advance Directives Information Provided: No Do you have thoughts of harming others: None Do you have a plan to hurt others: No Plan Recently lost weight without trying: No Eating poorly because of decreased appetite: No Nutrition Risks: No Nutritional Risk Poor oral hygiene: No Sexual orientation: Straight/Heterosexual Meds Allergies Allergy/AdvReac Type Severity Reaction Status Date / Time No Known Allergies Allergy Verified 01/23/25 17:45 Active Medications: Current Medications Acetaminophen (Acetaminophen 325 Mg Tablet) 650 mg PO Q6H PRN PRN Reason: Headache/Pain, Scale 1-10 Al Hydroxide/Mg Hydroxide (Magnesium Hydrox/Alum Hydrox 30 Ml Oral.Susp) 30 ml PO Q6H PRN PRN Reason: Heartburn/Nausea Hydroxyzine HCl (Hydroxyzine Hcl 25 Mg Tablet) 25 mg PO Q6H PRN PRN Reason: mild anxiety Magnesium Hydroxide (Milk Of Magnesia 30 Ml Oral.Susp) 30 ml PO DAILY PRN PRN Reason: Constipation Olanzapine (Olanzapine 5 Mg Tablet) 5 mg PO Q4H PRN PRN Reason: agitation Trazodone HCl (Trazodone Hcl 50 Mg Tablet) 50 mg PO BEDTIME MRX1 PRN PRN Reason: Insomnia Home Medications ?Medication ?Instructions ?Recorded ?Confirmed ?Last Taken ?Type No Known Home Meds 01/23/25 01/23/25 Unknown History Physical Exam 2 Vital Signs and Narrative: Vital Signs: Last Vital Signs Temp 97.8 F 01/24/25 08:39 Pulse 71 01/24/25 08:39 Resp 16 01/23/25 17:41 BP 133/76 01/24/25 08:39 Pulse Ox 99 01/24/25 08:39 O2 Del Method Room Air 01/24/25 08:39 BMI result Body Mass Index 30.6 General: AOx3, no acute distress Resp: CTA bilaterally CVS: S1, S2, RRR GI: +BS, NT, no distention Skin: Warm, dry Neuro: Cranial nerves II-XII grossly intact bilaterally. Motor grossly intact bilaterally Extremities: No edema Psych: Irritable, though ultimately cooperative Results Labs 01/24/25 07:38 Labs: Laboratory Results - last 24 hr 01/24/25 07:38 Anion Gap 10 L Estim Creat Clear Calc 141.0 Estimated GFR > 60 Random Glucose 100 Estimat Average Glucose 140 Hemoglobin A1c % 6.5 H Calcium 8.7 Total Bilirubin 0.4 AST 17 ALT 14 Alkaline Phosphatase 85 Total Protein 8.0 Albumin 3.7 Triglycerides 111 Cholesterol 211 H LDL Cholesterol, Calc 153 H HDL Cholesterol 36 L Vitamin B12 293 Folate 8.0 TSH 4.39 H Assessment and Plan (1) Medical clearance for psychiatric admission: Status: Acute Plan Pt is a 54-year-old male without known significant PMH not on home medications who is admitted to [facility] unit for increasingly bizarre and paranoid behavior. Pt apparently was brought in on a section 12 after being stopped by the police after approaching multiple people and accusing them of stalking him. Pt also then reportedly told the police that he had kidnapped 30 6-year-old children. Medical consult for admission H&P. Mood disorder Plan as per Psychiatry Pt otherwise has no acute medical complaints or known chronic medical conditions. Will sign off at this time. Thank you for allowing us to participate in the care this pt. Please re-consult if any acute issue or need arises.
[2025-01-24 20:00] VITALS: BP 123/66; PULSE 71; RESP 16; TEMP 36.9; O2SAT 98
[2025-01-25 07:53] VITALS: BP 137/89; PULSE 76; RESP 16; TEMP 36.4; O2SAT 98
--- NOTE | 2025-01-25 11:19 | PM.PSYDC ---
DS: Providers Provider Date of Service: 01/25/25 Date of admission: 01/23/25 17:11 Date of discharge: 01/25/25 Primary care physician: Unknown Physician Attending physician on admission: Ronaldo Sylvester Consults: 01/23/25 19:18 Consult to Hospitalist Routine Comment: Consulting Provider: [facility] Reason For Exam: medical H&P Attending physician on discharge: Ronaldo Sylvester DS: Diagnosis Discharge Diagnosis (1) Medical clearance for psychiatric admission: Status: Acute DS: Medications Discharge Medications Home Medications: Home Medications ?Medication ?Instructions ?Recorded ?Confirmed No Known Home Meds 01/23/25 01/23/25 Mental Status Exam Mental Status Exam Narrative: Pt is alert and oriented; behavior is cooperative, friendly, polite and calm; patient is not in distress; dressed in casual attire with unkempt hair, marginal hygiene; mood is described as good and affect congruent; eye contact appropriate; Speech is normal rate, volume and prosody and not pressured; no psychomotor agitation/retardation present; thought process is circumstantial but overall organized and goal directed; Thought content is on being wrongly admitted; chronic delusional thinking that people are following him and assume that he kidnapped individuals; denies any SI/HI. Denies AVH and currently there is no evidence of perceptual disturbance. Patients insight and judgment impaired but at baseline and adequate Data Data Completed and Pending Completed studies during hospitalization [Text1]: 01/24/25 07:38 Sodium 138 Potassium 4.0 Chloride 108 Carbon Dioxide 24 Anion Gap 10 L BUN 13 Creatinine 0.80 Estim Creat Clear Calc 141.0 Estimated GFR > 60 Random Glucose 100 Estimat Average Glucose 140 Hemoglobin A1c % 6.5 H Calcium 8.7 Total Bilirubin 0.4 AST 17 ALT 14 Alkaline Phosphatase 85 Total Protein 8.0 Albumin 3.7 Triglycerides 111 Cholesterol 211 H LDL Cholesterol, Calc 153 H HDL Cholesterol 36 L Vitamin B12 293 Folate 8.0 TSH 4.39 H DS: Summary Hospital Course Hospital Course: Patient is a 54-year-old man with reportedly no past psychiatric admissions, with delusional disorder, who presents for expressing delusional thoughts in the community. Patient is polite, organized in speech and behavior and in good behavioral and impulse control. He says he feels it is a big mistake that he was psychiatrically admitted and very much wants to explain his story. Patient shares that this past week he was at the [employer] and noticed a person following him; patient says this happens to him all the time and he is used to it however to be on the safe side, made sure that he showed that he was friendly to this person in front of an outdoor bank camera so that it would be documented. Patient told this person that he is going over to [facility]. As expected, this person walked by [facility] and patient waved to him. Patient was eating his pizza and said he saw a police car drive up. Patient thought it would be a good idea to go up to the officer, give him his id and let him know that he had no warrants...(which police report corroborates). In hindsight he wished he had just kept to himself. The officer started asking him questions and eventually police station psychiatrist? (possible Crisis SW) showed up; patient was sent to the local ED and made inpatient level of care. Bill Collector shared EDs report and patient acknowledged that he reported to the police he was being stalked by people wherever he goes, however he says he only went up to 1 person (denies that he went up to anyone else at all and has not done so for several months); regarding patient telling police that he kidnapped 30 children... Patient explained what he said was that the people following him must be assuming that he is kidnapping invisible individual...(patient expressed a chronic concern that people may think he is kidnapping others) but patient said he never said children, he just said individuals and that he used the word invisible to be facetious because he is obviously not kidnapping people...patient says he has never kidnapped anyone, never wants to and never would. Patient says he was a little upset that he was being taken to the hospital and being placed inpatient but he was never agitated and never did anything aggressive at all. Regarding patient's chronic belief that people are following him, patient said it has been happening for a long time and he accepts it; he assumes they are part of a neighborhood watch group; he never feels threatened by them and does not think they mean any harm; rather patient has grown use to it, though periodically he will approach such a person and ask why they are following (to which they always respond they have no idea what he is talking about). Patient denies any drug or alcohol use; He denies any SI or HI ever; denies any AVH ever. Denies any depression or anxiety. Patient says he has never been psychiatrically admitted and has never taken psychotropic medications. He says he has been living in a snf called [facility] in [facility] for the past year where staff is helping him get into permanent housing. Patient says he supports himself through gambling winnings. Hospital course/Formulation/clinical reasoning: Patient presents his story well. He is in good behavioral and impulse control and organized in speech and behavior and explains himself logically inappropriately. There is nothing in the police report/ED report to imply any dangerousness and patient denies any SI or HI or any history of such. Patient does not have any insight that he has delusional thinking and does not want any medications; rather he wants to return back to the snf where he has been living for year and continue living his life. Patient does not want or feel the need for medication. Although patient lacks insight into his delusional thinking, he was very receptive to technical report writer's recommendation that he refrain from asking people (whom he thinks are following him) why they are following him, given that it does not really bother him. Patient remained in good behavioral and impulse control, appropriate with peers and staff, organized in speech and behavior, in good mood, polite and at baseline. Bill Collector was able to talk with his employment case manager at [facility] who corroborates that he has been there for year and that there are no circumstances at all of patient engaging in any unsafe or problematic behavior and that he is welcome back there. Patient is on a [address] and is asking for discharge. Patient denies any SI or HI and there is no evidence that patient is in imminent risk for harm to self or others; patient has safe housing and technical report writer can not testify that he is unable to take care of himself in the community. Patient does not meet criteria for involuntary commitment and patient does not want treatment of any kind. Patient's request for discharge honored. Time spent discussing smoking cessation with patient: 3 to 10 minutes Status at Discharge Functional status at discharge: independent ambulation Overall status at discharge: patient is back to baseline Time Spent with Patient Time attestation: Total time managing care of this patient today 45____ minutes. Time spent: Greater than 30 minutes Specific discharge activities: Met with patient; discussed with team; gathering collateral; charting Discharge Plan Discharge Anticipated Discharge Date/Time: 01/25/25 12:00 Patient Disposition: Home, Self-Care Discharge Diagnosis: psychiatric illness Referrals: Physician,Unknown J [Primary Care Provider] - 1 Week Discharge Medications: No Action No Known Home Meds Discharge Orders: Discharge Order (Routine); Ordered 01/25/25 Ordered By: Ronaldo Sylvester Diet: Regular diet Activity on Discharge: As tolerated Stand Alone Forms: Patient Portal Discharge page, Community Support Print Language: [place] Care Plan Goals: Maintain mood and safe behaviors Practice coping skills Continue with outpatient providers and reach out to them as needed Health Concerns: Mood stability and behaviors Plan of Treatment: Follow up with outpatient providers Assessment: Risk assessment at time of discharge:? Patient was interviewed prior to discharge and found to be fully oriented and without any SI or HI. Patient has improved insight and judgment and wants to continue treatment. Patient is not in imminent risk of harm to self or others and has a safety plan that includes presenting to the closest ER or calling 911 if feeling unsafe.? Patient has been observed closely by nursing and unit staff throughout admission; patient has not engaged in any behaviors that suggest dangerousness to self or others and has demonstrated appropriate behaviors and impulse control
== END 2025-01-25 11:59 | disposition home or self-care (01) | DRG 750 ==
PROVIDERS: Social Worker; Admitting Provider Psychiatry & Neurology Psychiatry; Visit Provider Psychiatry & Neurology Psychiatry
DX: F20.9 Schizophrenia, unspecified (principal); Z59.01 Sheltered homelessness
CPT/HCPCS: 36415; 80053; 80061; 82607; 82746; 83036; 84443

== ENCOUNTER → 2025-01-23 17:11 | Outpatient (BNV) | payer SELFPAY | PROVIDERS: Admitting Provider Psychiatry & Neurology Psychiatry; Visit Provider Psychiatry & Neurology Psychiatry | DX: F20.9 Schizophrenia, unspecified (principal) | CPT/HCPCS: 90792 ==

== ENCOUNTER → 2025-01-23 17:11 | Outpatient (BNV) | payer MEDICAID, SELFPAY | PROVIDERS: Admitting Provider Psychiatry & Neurology Psychiatry; Visit Provider Student in an Organized Health Care Education/Training Program | DX: Z02.2 Encounter for examination for admission to residential institution (principal) | CPT/HCPCS: 99429 ==